=== PATIENT | male | born 1955 | race Caucasian/White ===

== ENCOUNTER 2022-04-07 17:43 | Inpatient (IN) | payer MEDICARE, OTHER ==
[~2022-04-07] VITALS: Ht 170.2 cm; Wt 63.5 kg
[2022-04-07 19:07] LABS: BILIRUBIN,URINE NEGATIVE (NEGATIVE); COLOR,URINE YELLOW (YELLOW); LEUKOCYTE ESTERASE ,URINE NEGATIVE (NEGATIVE); NITRITE, URINE NEGATIVE (NEGATIVE); PROTEIN,URINE NEGATIVE (NEGATIVE); UGLUCOSE NEGATIVE (NEGATIVE); UROBILINOGEN,URINE 0.2 EU/dL (0.2)
[2022-04-07 19:17] LABS: BACTERIA,URINE None seen /HPF (None Seen); RBC,URINE 0-2 /HPF (0-2); SQUAMOUS EPITHELIAL CELL,UR 0-2 /HPF (None Seen); WBC,URINE 0-2 /HPF (0-3)
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
[2022-04-07 19:41] LABS: ALANINE AMINOTRANSFERASE 10 U/L (12-78); ALBUMIN 3.4 g/dL (3.4-5.0); ALCOHOL, BLOOD < 3 mg/dL (0-0); ALKALINE PHOSPHATASE 113 U/L (46-116); ASPARTATE AMINOTRANSFERASE 7 U/L (15-37); BILIRUBIN,DIRECT 0.1 mg/dL (0.0-0.2); BILIRUBIN,TOTAL 0.4 mg/dL (0.2-1.0); CALCIUM, SERUM 9.1 mg/dL (8.5-10.1); CARBON DIOXIDE 20 mmol/L (21-32); CHLORIDE 104 mmol/L (98-107); CREATININE 0.8 mg/dL (0.6-1.3); GLUCOSE 109 mg/dL (74-106); SODIUM SERUM 140 mmol/L (136-145); TOTAL PROTEIN, SERUM 6.7 g/dL (6.4-8.2); UREA NITROGEN, BLOOD 21 mg/dL (7-18)
[2022-04-07 19:47] LABS: ACETAMINOPHEN < 0 ug/ml (10-30)
--- NOTE | 2022-04-07 19:48 | NUR ---
COVID ANTIGEN SWAB COLLECTED AND SENT TO LAB
[2022-04-07 20:36] LABS: BASOPHILS # (AUTO) 0.1 K/uL (0.0-0.2); BASOPHILS % (AUTO) 0.6 % (0.0-2.0); EOSINOPHILS % (AUTO) 1.3 % (0.0-6.0); HEMATOCRIT 36 % (39-51); HEMOGLOBIN 11.4 g/dL (13.5-17.5); LYMPHOCYTES # (AUTO) 6.6 K/uL (0.8-4.8); LYMPHOCYTES % (AUTO) 45.6 % (20.0-44.0); MEAN CORPUSCULAR HGB CONC 32 g/dl (31.0-36.0); MEAN CORPUSCULAR VOLUME 84 fL (80-96); MONOCYTES # (AUTO) 0.6 K/uL (0.1-1.30); MONOCYTES % (AUTO) 4.3 % (2.0-12.0); NEUTROPHILS % (AUTO) 48.2 % (43.0-81.0); PLATELET COUNT (AUTO) 373 K/uL (150-450); RED BLOOD CELL COUNT(AUTO) 4.32 MIL/uL (4.5-6.0); WHITE BLOOD COUNT (AUTO) 14.6 K/uL (4.3-11.0)
--- NOTE | 2022-04-07 20:50 | NUR ---
PT IS GOING TO ROOM 217 GPS
--- NOTE | 2022-04-07 20:51 | NUR ---
REPORT GIVEN TO MARCOS PRO FOR ELVIRA
--- NOTE | 2022-04-07 21:22 | NUR ---
PT TAKEN TO GPS 217 VIA HOSPITAL PROTOCOL. VSS. ALL BELONGINGS WITH PT.
[2022-04-07 21:30] VITALS: BP 129/85
[2022-04-07] MEDS ORDERED: OMEP40CA21 PO (21:42)
[2022-04-07] MEDS ORDERED: LITH300T3 PO (21:43)
[2022-04-07] MEDS ORDERED: HALO100V5 IM (21:46)
[2022-04-07] MEDS ORDERED: MAGNESIUM HYDROXIDE 30 ML UDC PO PRN (22:00)
[2022-04-07] MEDS ORDERED: ACETAMINOPHEN 325 MG TABLET PO PRN (22:00)
[2022-04-07] MEDS ORDERED: TEMAZEPAM 7.5 MG CAPSULE PO PRN (22:00)
[2022-04-07 22:01] VITALS: BP 129/85
[2022-04-07] MEDS ORDERED: BLOOD SUGAR DIAGNOSTIC 1 EACH STRIP IN ONE (22:30)
[2022-04-07] MEDS ORDERED: hydrOXYzine HCL SYRUP 10 MG/5 ML UDC PO PRN (22:30)
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
--- NOTE | 2022-04-08 01:00 | NUR ---
GPS RN NOTE, PATIENT NEEDS A MEDICATION RECONCILIATION. PAGED [facility] AND INFORMED ANNE HURLEY DNP OF MY FINDINGS. ANNE HURLEY DNP SAID SHE WILL DO THE MEDICATION RECONCILIATION ANA. WILL CONTINUE TO MONITOR THIS PATIENT WITH THE HELP OF STAFF.
--- NOTE | 2022-04-08 05:33 | NUR ---
GPS RN NOTE PATIENT HAS BEEN SLEEPING COMFORTABLY IN HIS BED SINCE 2214.
--- NOTE | 2022-04-08 06:00 | NUR ---
GPS RN NOTE, PATIENT NEEDS A MEDICATION RECONCILIATION. PAGED [facility] AND INFORMED ANNE HURLEY DNP OF MY FINDINGS. ANNE HURLEY DNP SAID SHE WILL DO THE MEDICATION RECONCILIATION ANA. WILL CONTINUE TO MONITOR THIS PATIENT WITH THE HELP OF STAFF.
--- NOTE | 2022-04-08 06:50 | NUR ---
PATIENT IS STILL ASLEEP COMFORTABLY.
[2022-04-08] MEDS: NICOTINE PATCH (21MG) 21 MG PATCH.TD24 TD SCH ×2 (08:21→08:27)
--- NOTE | 2022-04-08 11:00 | NUR ---
IV of gauge #22 started on right hand with good blood return and pt. tolerated well.
[2022-04-08] MEDS ORDERED: IV LR 1000 ML 1,000 ML IV SCH (11:30)
--- NOTE | 2022-04-08 11:40 | NUR ---
iv started lt wrist with #22 angio.bun elevated.
[2022-04-08] MEDS: LITHIUM CARBONATE (300 MG CAP) 300 MG CAPSULE PO SCH (12:24)
[2022-04-08] MEDS: PANTOPRAZOLE 40 MG TABLET.DR PO SCH (12:24)
[2022-04-08 16:00] VITALS: BP 128/73
--- NOTE | 2022-04-08 18:00 | NUR ---
med compliant,calling out for rn nichelle.very needy.
[2022-04-08] MEDS: OLANZAPINE 5 MG TABLET PO SCH (18:31)
--- NOTE | 2022-04-08 19:50 | NUR ---
GPS RN OPENING NOTE: RECEIVED PATIENT RESTING IN BED AWAKE, A & O X 1, DISORGANIZED, LABILE, RESTLESS, ANXIOUS, DELUSIONAL, PARANOID THOUGHTS. REDIRECTABLE AT THIS TIME. LR IVF RUNNING AT 100 ML/HR TO RIGHT POSTERIOR HAND, INTACT AND DRY. PATIENT TOLERATING IV FLUIDS WELL WITH GOOD URINE OUTPUT. NO S/S OF INFECTION/INFILTRATION NOTED. NO C/O PAIN VERBALIZED. NO ACUTE DISTRESS NOTED. PATIENT DENIES SI/HI AT THIS TIME. BED IN LOW LOCKED POSITION. BED ALARM ON. WILL CONTINUE TO MONITOR Q 15 MIN FOR SAFETY AND BEHAVIOR.
[2022-04-08 20:13] VITALS: BP 126/75
[2022-04-08 20:19] VITALS: BP 126/75
--- NOTE | 2022-04-08 21:32 | NUR ---
GPS RN NOTE: INSOMNIA PATIENT VERBALIZED BEING UNABLE TO SLEEP AND REQUESTED TO TAKE SLEEPING MEDICINE. PER PATIENT REQUEST, PRN RESTORIL 7.5 MG 1 CAP PO ADMINISTERED. WILL CONTINUE TO MONITOR.
--- NOTE | 2022-04-08 21:45 | NUR ---
GPS RN NOTE PATIENT'S IVF LACTATE RINGER FINISHED AT THIS TIME, PATIENT TOLERATED IV FLUIDS WELL, YELLOW/CLEAR URINE OUTPUT NOTED. IV CATHETER TO RIGHT HAND INTACT AND DRY. NO S/S OF INFECTION NOTED. PATIENT IS SLEEPING AT THIS TIME. WILL CONTINUE TO MONITOR FOR ANY CHANGE OF CONDITION.
[2022-04-09] MEDS: PANTOPRAZOLE 40 MG TABLET.DR PO SCH (06:57)
[2022-04-09 07:20] LABS: BASOPHILS # (AUTO) 0.1 K/uL (0.0-0.2); BASOPHILS % (AUTO) 0.6 % (0.0-2.0); EOSINOPHILS % (AUTO) 1.9 % (0.0-6.0); HEMATOCRIT 34 % (39-51); HEMOGLOBIN 10.9 g/dL (13.5-17.5); LYMPHOCYTES # (AUTO) 4.8 K/uL (0.8-4.8); LYMPHOCYTES % (AUTO) 41.2 % (20.0-44.0); MEAN CORPUSCULAR HGB CONC 32 g/dl (31.0-36.0); MEAN CORPUSCULAR VOLUME 84 fL (80-96); MONOCYTES # (AUTO) 0.7 K/uL (0.1-1.30); MONOCYTES % (AUTO) 5.8 % (2.0-12.0); NEUTROPHILS # (AUTO) 5.9 K/uL (1.8-8.9); NEUTROPHILS % (AUTO) 50.5 % (43.0-81.0); PLATELET COUNT (AUTO) 345 K/uL (150-450); WHITE BLOOD COUNT (AUTO) 11.6 K/uL (4.3-11.0)
[2022-04-09 07:22] LABS: CALCIUM, SERUM 9.5 mg/dL (8.5-10.1); CREATININE 0.9 mg/dL (0.6-1.3)
[2022-04-09] MEDS ORDERED: OMEPRAZOLE 20 MG CAPSULE.DR PO SCH (07:30)
[2022-04-09 08:00] VITALS: BP 118/62
[2022-04-09] MEDS: NICOTINE PATCH (21MG) 21 MG PATCH.TD24 TD SCH (08:53)
[2022-04-09] MEDS: OLANZAPINE 5 MG TABLET PO SCH ×2 (08:53→16:56)
[2022-04-09] MEDS: LITHIUM CARBONATE (300 MG CAP) 300 MG CAPSULE PO SCH (08:53)
--- NOTE | 2022-04-09 09:00 | NUR ---
GPS/RN RECEIVED PT RESTING IN THE BED, DISORGANIZED, DISORIENTED. DENIES SI/HI AT THIS TIME. DENIES PAIN AT THIS TIME. NO S/S OF ACUTE DISTRESS. DAILY MEDS COMPLIANT. AMBULATORY. ALL NEEDS ATTENDED AND ANTICIPATED. WILL CONTINUE TO MONITOR Q15 FOR MOOD, SAFETY AND BEHAVIOR. H/L REMOVED NM PT REQUEST.
[2022-04-09 16:00] VITALS: BP 123/77
[2022-04-09 19:53] VITALS: BP 122/73
--- NOTE | 2022-04-10 01:34 | NUR ---
RN Note Pt refused all the PRN meds.
[2022-04-10] MEDS: PANTOPRAZOLE 40 MG TABLET.DR PO SCH (06:16)
[2022-04-10 08:00] VITALS: BP 135/75
[2022-04-10] MEDS: LITHIUM CARBONATE (300 MG CAP) 300 MG CAPSULE PO SCH (09:10)
[2022-04-10] MEDS: OLANZAPINE 5 MG TABLET PO SCH ×2 (09:11→17:19)
[2022-04-10] MEDS: NICOTINE PATCH (21MG) 21 MG PATCH.TD24 TD SCH (09:11)
--- NOTE | 2022-04-10 10:57 | NUR ---
MERNA Initial Discharge Plan: Patient currently resides at home located at [address] [place] [address]. Pt has a caregiver at home Philomena ([phone]). Pt would want to return back home upon discharge. MERNA will work with the family, MD, and pt to help coordinate appropriate discharge.
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
--- NOTE | 2022-04-10 10:58 | NUR ---
Treatment Plan: Pt refused to sign treatment plan and was paranoid.
--- NOTE | 2022-04-10 11:01 | NUR ---
Social Work Note/Substance Abuse Intervention: Patient was provided with a brief substance abuse intervention and referred to [facility] ([phone]), [facility] ([phone]), and [facility] ([phone]) for smoking.
--- NOTE | 2022-04-10 15:50 | NUR ---
Individual Counseling: SW met with pt. to complete individual counseling. The pt. is labile with paranoid ideation. Pt. is somewhat disorganized and confused. SW will meet with pt. another time for therapeutic millieu.
[2022-04-10 16:00] VITALS: BP 130/71
--- NOTE | 2022-04-10 16:04 | NUR ---
MERNA Family Contact: MERNA spoke with patient's brother Juliette ([phone]) to gather collateral and discuss treatment and discharge plan. Brother stated pt has a caregiver 11/06. However, he stated that they are unable to take care of him properly. He stated nurse would come every 3 weeks to give pt Haldol shot. He stated that he would want to check in with this insurance underwriter end of this week to possibly discuss nursing facility options for pt.
--- NOTE | 2022-04-10 19:30 | NUR ---
GPS RN NOTES RECEIVED PATIENT IN HIS ROOM. ALERT AND ORIENTED X2, ABLE TO MAKE NEEDS KNOWN. NO S/SX OF ACUTE DISTRESS NOTED. PATIENT REMAINS DELUSIONAL, LABILE, NEEDY, VISIBLE IN THE UNIT, COOPERATIVE. VERBALIZATION OF FEELINGS ENCOURAGED. SAFETY PRECAUTIONS IN PLACE. WILL CONTINUE TO MONITOR Q15MIN ROUNDS FOR SAFETY AND BEHAVIOR.
[2022-04-10 19:42] VITALS: BP 109/70
[2022-04-11 08:00] VITALS: BP 140/84
[2022-04-11] MEDS: PANTOPRAZOLE 40 MG TABLET.DR PO SCH (08:28)
[2022-04-11] MEDS: OLANZAPINE 5 MG TABLET PO SCH ×2 (08:28→16:13)
[2022-04-11] MEDS: LITHIUM CARBONATE (300 MG CAP) 300 MG CAPSULE PO SCH (08:29)
[2022-04-11] MEDS: NICOTINE PATCH (21MG) 21 MG PATCH.TD24 TD SCH (08:33)
[2022-04-11 16:00] VITALS: BP 112/69
[2022-04-11 20:26] VITALS: BP 106/60
[2022-04-11 22:48] VITALS: BP 106/60
[2022-04-12 08:00] VITALS: BP 122/74
[2022-04-12] MEDS: NICOTINE PATCH (21MG) 21 MG PATCH.TD24 TD SCH ×2 (08:31→09:00)
[2022-04-12] MEDS: PANTOPRAZOLE 40 MG TABLET.DR PO SCH (08:31)
[2022-04-12] MEDS: LITHIUM CARBONATE (300 MG CAP) 300 MG CAPSULE PO SCH ×2 (08:31→17:12)
[2022-04-12] MEDS: OLANZAPINE 5 MG TABLET PO SCH ×2 (08:31→17:12)
--- NOTE | 2022-04-12 08:37 | NUR ---
RN-NOTES RECEIVED T.O DISCHARGE ORDER FROM DR. FERNANDEZ NOTED AND CARRIED OUT.
--- NOTE | 2022-04-12 13:24 | NUR ---
Court Notification: SW attempted to contact pt's brother Jim ([phone]) to notify of pt's 9400 hearing.
[2022-04-12 16:00] VITALS: BP 126/71
--- NOTE | 2022-04-12 18:22 | NUR ---
RN-NOTES PATIENT LYING IN BED AWAKE,ALERT X1,GUARDED, AMBULATORY STEADY GAIT. NOTED PATIENT WITH DELUSIONAL STATED" I WAS SEND HERE IN [facility] AND TO SEE THE CAPTAIN ". NEEDS FREQUENT REDIRECTIONS AND INSTRUCTIONS.COMPLIANT WITH MEDICATIONS. ALL NEEDS ATTENDED AND ANTICIPATED. WILL CONT. MONITORING FOR SAFETY AND BEHAVIOR. WILL ENDORSE TO INCOMING SHIFT FOR CONTINUITY OF CARE.
[2022-04-12 20:00] VITALS: BP 113/71
[2022-04-13 08:00] VITALS: BP 128/77
[2022-04-13] MEDS: LITHIUM CARBONATE (300 MG CAP) 300 MG CAPSULE PO SCH ×2 (08:03→16:26)
[2022-04-13] MEDS: OLANZAPINE 5 MG TABLET PO SCH ×2 (08:03→16:26)
[2022-04-13] MEDS: PANTOPRAZOLE 40 MG TABLET.DR PO SCH (08:03)
[2022-04-13] MEDS: NICOTINE PATCH (21MG) 21 MG PATCH.TD24 TD SCH (08:04)
--- NOTE | 2022-04-13 08:25 | NUR ---
SNF Referral: SW sent clinicals to [facility] ([phone]) for placement option. SW sent H & P, progress notes, and medication list.
[2022-04-13 16:00] VITALS: BP 128/76
--- NOTE | 2022-04-13 18:19 | NUR ---
RN-NOTES PATIENT LYING IN BED AWAKE,ALERT X1 GUARDED ,NOTED WITH DELUSIONAL, EASILY ANGRY AND IRRITABLE BEHAVIOR.NO ACUTE DISTRESS NOTED. COMPLIANT WITH MEDICATIONS.NEEDS MINIMAL ASSIST WITH ADL'S.AMBULATORY STEADY GAIT.ABLE TO MAKE NEEDS KNOWN TO THE STAFF. ALL NEEDS ATTENDED AND ANTICIPATED. WILL CONT. MONITORING FOR SAFETY AND BEHAVIOR.WILL ENDORSE TO INCOMING NURSE FOR CONTINUITY OF CARE.
[2022-04-13 19:57] VITALS: BP 134/80
[2022-04-13 20:00] VITALS: BP 134/80
--- NOTE | 2022-04-13 20:50 | NUR ---
GPS RN NOTE: PAIN PATIENT C/O GENERALIZED BODY PAIN, UNABLE TO SCALE DUE TO CONFUSION. PATIENT REQUESTED TO TAKE PAIN MEDICINE, PRN TYLENOL 650 MG PO ADMINISTERED.
[2022-04-14] MEDS: MAG HYDROX/AL HYDROX/SIMETH 30 ML UDC PO PRN ×2 (00:09→04:29)
--- NOTE | 2022-04-14 00:12 | NUR ---
GPS RN NOTE: HEARTBURN PATIENT C/O HEARTBURN AND WANTED TO TAKE MEDICINE. PRN MAALOX 30 ML PO ADMINISTERED. WILL CONTINUE TO MONITOR.
--- NOTE | 2022-04-14 04:32 | NUR ---
GPS RN NOTE: STOMACH UPSET PATIENT C/O STOMACH UPSET AND WANTED TO TAKE MEDICINE. PER PATIENT REQUEST, PRN MAALOX 30 ML PO ADMINISTERED. WILL CONTINUE TO MONITOR.
[2022-04-14] MEDS: PANTOPRAZOLE 40 MG TABLET.DR PO SCH (06:33)
[2022-04-14 08:00] VITALS: BP 126/73
[2022-04-14] MEDS: LITHIUM CARBONATE (300 MG CAP) 300 MG CAPSULE PO SCH (08:49)
[2022-04-14] MEDS: NICOTINE PATCH (21MG) 21 MG PATCH.TD24 TD SCH (08:54)
--- NOTE | 2022-04-14 08:55 | NUR ---
RN-NOTES PATIENT REFUSED ZYPREXA 5MG P.O ,STATED" I DON'T TAKE ZYPREXA", AND TROW THE MEDICATION ON THE FLOOR. BLANCHE KNIGHT IN THE UNIT AND MADE AWARE.
--- NOTE | 2022-04-14 09:31 | NUR ---
Court Notification: SW attempted to contact pt's brother Karissa ([phone]) not notify of [phone]. SW left voicemail.
--- NOTE | 2022-04-14 11:58 | NUR ---
SNF Contact: SW spoke with [facility] ([phone]) who stated pt is accepted.
--- NOTE | 2022-04-14 12:18 | NUR ---
Court Hearing: Patient's court hearing for 8540 was today and it was upheld for GD and danger to others.
--- NOTE | 2022-04-14 13:01 | NUR ---
MERNA Family Contact: MERNA contacted patient's brother Juliette ([phone]) and notified that he is accepted at [facility]. He was agreeable of this and wants pt to go to a nursing facility.
--- NOTE | 2022-04-14 14:22 | NUR ---
MERNA Family Contact: MERNA received a call from pt's brother Ashely ([phone]) who stated that pt's Haldol Long Acting injection is due 04/15/2022 and that he receives it every three weeks. MERNA will Notify Dr. Lockhart.
--- NOTE | 2022-04-14 14:23 | NUR ---
MERNA Note: MERNA contacted Dr. Lockhart in regards to pt's brother concerned about his Haldol long acting injection that it is due 04/15/2022. MERNA contacted pt's doctor office ([phone]) to conform dosage. Pt receives long acting injection Haldol every three weeks. MERNA confirmed (Psychiatrist) Dr. Looney office that pt receives Haldol 100mg long acting injection. MERNA notified MARCOS Gamino and MARCOS Griffin.
--- NOTE | 2022-04-14 14:23 | NUR ---
RN-NOTES T.O ORDER FROM DNP IKNAKUL OF HALOPERIDOL DECANOATE 100MG IM ONCE ON 04-14-22 . NOTED AND CARRIED OUT.
--- NOTE | 2022-04-14 14:26 | NUR ---
MERNA Family Contact: MERNA contacted pt's brother Ashely ([phone]) and notified that Dr. Lockhart will place the order for the Haldol long acting injection.
[2022-04-14 16:00] VITALS: BP 125/67
--- NOTE | 2022-04-14 18:52 | NUR ---
RN-NOTES PATIENT LYING IN BED AWAKE,ALERT X1 GUARDED ,NOTED WITH DELUSIONAL, EASILY ANGRY AND IRRITABLE BEHAVIOR.NO ACUTE DISTRESS NOTED. SELECTIVE WITH MEDICATIONS.NEEDS MINIMAL ASSIST WITH ADL'S.AMBULATORY STEADY GAIT.ABLE TO MAKE NEEDS KNOWN TO THE STAFF. ALL NEEDS ATTENDED AND ANTICIPATED. WILL CONT. MONITORING FOR SAFETY AND BEHAVIOR.WILL ENDORSE TO INCOMING NURSE FOR CONTINUITY OF CARE.
[2022-04-14 19:39] VITALS: BP 109/74
[2022-04-14 20:00] VITALS: BP 109/74
[2022-04-15] MEDS: MAG HYDROX/AL HYDROX/SIMETH 30 ML UDC PO PRN (02:03)
[2022-04-15] MEDS: PANTOPRAZOLE 40 MG TABLET.DR PO SCH (06:52)
[2022-04-15 08:00] VITALS: BP 113/64
[2022-04-15] MEDS: NICOTINE PATCH (21MG) 21 MG PATCH.TD24 TD SCH (08:21)
[2022-04-15] MEDS: LITHIUM CARBONATE (300 MG CAP) 300 MG CAPSULE PO SCH (08:21)
[2022-04-15] MEDS ORDERED: HALOPERIDOL DECANOATE IM 100 MG/ML AMPUL IM ONE ×2 (09:00→11:00)
--- NOTE | 2022-04-15 09:45 | NUR ---
RN Notes: Received pt. in the hallway, responsive to staffs, no distress and no agitation noted. Ate 100% for breakfast and compliant on po med and refused for Nicotine patch. Pt. is disorganized, needy and delusional and wanted to talk to [facility] commander and doesn't know who he is and what's the umber to call. Encouraged to verbalize feelings and motivated to take shower. Needs attended and will continue to monitor for safety.
[2022-04-15 16:00] VITALS: BP 101/60
[2022-04-15 20:00] VITALS: BP 95/60
[2022-04-15 20:21] VITALS: BP 95/60
[2022-04-16] MEDS: PANTOPRAZOLE 40 MG TABLET.DR PO SCH (06:55)
--- NOTE | 2022-04-16 06:59 | NUR ---
GPS RN NOTE PANTOPRAZOLE GIVEN TO THE PATIENT THIS MORNING, OMNICELL SHOWS THERE SHOULD BE 8 PANTOPRAZOLE REMAINING AFTER TAKING OUT TODAY'S DOSE BUT NECK BAND SETTER NOTED THAT THERE WAS ONLY 6 PANTOPRAZOLE TABS REMAINING IN THE OMNICELL.
--- NOTE | 2022-04-16 07:30 | NUR ---
RN-NOTE PATIENT LYING IN BED AWAKE,ALERT X1 GUARDED ,NOTED WITH DELUSIONAL, EASILY ANGRY AND IRRITABLE BEHAVIOR.NO ACUTE DISTRESS NOTED. SELECTIVE WITH MEDICATIONS.NEEDS MINIMAL ASSIST WITH ADL'S.AMBULATORY STEADY GAIT.ABLE TO MAKE NEEDS KNOWN TO THE STAFF. ALL NEEDS ATTENDED AND ANTICIPATED. WILL CONT. MONITORING FOR SAFETY AND BEHAVIOR.
--- NOTE | 2022-04-16 07:30 | NUR ---
Received pt. in the hallway, responsive to staff, no distress and no agitation noted. Ate 100% for breakfast and compliant on po med and refused for Nicotine patch. Encouraged to verbalize feelings and motivated to take shower. Needs attended and will continue to monitor for safety.
[2022-04-16 08:00] VITALS: BP_SYST 112; BP_SYST 150; BP_DIAS 64; BP_DIAS 72
[2022-04-16] MEDS: NICOTINE PATCH (21MG) 21 MG PATCH.TD24 TD SCH (08:31)
[2022-04-16] MEDS: LITHIUM CARBONATE (300 MG CAP) 300 MG CAPSULE PO SCH (08:31)
[2022-04-16 16:00] VITALS: BP 105/60
[2022-04-16 20:23] VITALS: BP 104/62
[2022-04-17] MEDS: PANTOPRAZOLE 40 MG TABLET.DR PO SCH ×2 (06:37→08:35)
[2022-04-17 08:00] VITALS: BP 113/69
[2022-04-17] MEDS: LITHIUM CARBONATE (300 MG CAP) 300 MG CAPSULE PO SCH (08:34)
[2022-04-17] MEDS: NICOTINE PATCH (21MG) 21 MG PATCH.TD24 TD SCH (08:36)
[2022-04-17 16:00] VITALS: BP 113/70
--- NOTE | 2022-04-17 17:44 | NUR ---
RN-NOTES PATIENT LYING IN BED AWAKE,ALERT X1 GUARDED ,NOTED WITH EASILY ANGRY AND IRRITABLE BEHAVIOR.NO ACUTE DISTRESS NOTED. COMPLIANT WITH MEDICATIONS.NEEDS MINIMAL ASSIST WITH ADL'S.AMBULATORY STEADY GAIT.ABLE TO MAKE NEEDS KNOWN TO THE STAFF. ALL NEEDS ATTENDED AND ANTICIPATED. WILL CONT. MONITORING FOR SAFETY AND BEHAVIOR.WILL ENDORSE TO INCOMING NURSE FOR CONTINUITY OF CARE.
--- NOTE | 2022-04-17 19:30 | NUR ---
GPS RN NOTES RECEIVED PATIENT LYING IN BED AWAKE. A/O X1-2 GUARDED. NOT IN APPARENT DISTRESS. DENIES PAIN AT THIS TIME. NOTED WITH EASILY ANGRY AND IRRITABLE BEHAVIOR. AMBULATORY WITH STEADY GAIT. ABLE TO MAKE NEEDS KNOWN TO THE STAFF. WILL CONT. MONITORING FOR SAFETY AND BEHAVIOR.
[2022-04-17 20:00] VITALS: BP 114/69
--- NOTE | 2022-04-18 06:05 | NUR ---
GPS RN NOTES PATIENT LYING IN BED QUIETLY, AWAKE. A/O X1-2 GUARDED. NO C/O PAIN AT THIS TIME. NO S/S OF DISTRESS NOTED. BREATHING EVEN AND NON-LABORED ON ROOM AIR. DENIES SI/HI AT THIS TIME. NOTED WITH EASILY ANGRY AND IRRITABLE BEHAVIOR. ALL NEEDS ANTICIPATED. AMBULATORY WITH STEADY GAIT. SAFETY PRECAUTIONS IN PLACE: BED LOW AND LOCKED, SIDE RAILS UP X2. WILL CONT. MONITORING FOR SAFETY AND BEHAVIOR. WILL ENDORSE TO AM NURSE FOR CONTINUITY OF CARE.
[2022-04-18 06:52] VITALS: BP 114/69
[2022-04-18 08:00] VITALS: BP 127/71
[2022-04-18] MEDS: NICOTINE PATCH (21MG) 21 MG PATCH.TD24 TD SCH ×2 (08:37→08:59)
[2022-04-18] MEDS: LITHIUM CARBONATE (300 MG CAP) 300 MG CAPSULE PO SCH (08:37)
[2022-04-18] MEDS: PANTOPRAZOLE 40 MG TABLET.DR PO SCH (08:37)
--- NOTE | 2022-04-18 09:26 | NUR ---
MERNA Family Contact: SW contacted pt's brother Ashely ([phone]) notified pt will be discharging on 04/[address] [facility] and left a detailed voicemail.
--- NOTE | 2022-04-18 14:20 | NUR ---
anxious about going home tomorrow.
--- NOTE | 2022-04-18 14:50 | NUR ---
COVID TEST DONE IN PREPARATION OF DISCHARGE TOMORROW.
[2022-04-18 16:00] VITALS: BP 113/68
[2022-04-18 20:00] VITALS: BP 114/60
--- NOTE | 2022-04-18 20:30 | NUR ---
GPS RN NOTES: PATIENT AIRSET MOLDER CAME AND WAS VERY UPSET WHEN WE TOLD HER PATIENT DID NOT HAVE A WALLET WITH HIM ON ADMISSION. AIRSET MOLDER STARTED CURSING AT STAFF, YELLING THAT PATIENT WALLET HAS BEEN STOLEN BY STAFF. GPS ADMITTING RECORD DID NOT SHOW PATIENT CAME WITH A WALLET TO THE UNIT. SUPERVISORS SAFE HAS ONLY PATIENT CELL PHONE. ASSISTANT CURATOR CAME AND TRIED TALKING TO CAREGIVER EXPLAINING THAT ER IS CHECKING TO SEE IF PATIENT HAD A WALLET WITH HIM BUT SHE WOULDN'T LISTEN. ER HAS BEEN CONTACTED TO CHECK IF PATIENT WALLET WAS ACCIDENTALLY LEFT BEHIND DURING TRANSFER TO GPS. AWAITING ER RESPONSE. AIRSET MOLDER FINALLY LEFT WITH PATIENT RADIO, BELT, EXTENSION CORDS, VOLUNTEER FIRE FIGHTER, AND CIGARETTES.
--- NOTE | 2022-04-19 00:22 | NUR ---
GPS RN NOTES: ER PATIENT BELONGINGS SHEET SHOWS PATIENT DID NOT HAVE ANY WALLET WITH HIM ON ADMISSION.
--- NOTE | 2022-04-19 07:10 | NUR ---
GPS RN CLOSING NOTES: PATIENT AWAKE, A/O X2. PATIENT SLEPT 8HRS THIS SHIFT. NO S/S OF DISTRESS. RESPIRATION EVEN AND UNLABORED WITH EQUAL RISE AND FALL OF THE CHEST, ON ROOM AIR. ALL PATIENT CARE NEEDS HAVE BEEN MET ANTICIPATED. WILL CONTINUE TO MONITOR Q15 FOR SAFETY, MOOD, AND BEHAVIOR AND ENDORSE TO AM SHIFT.
[2022-04-19 08:00] VITALS: BP 119/68
[2022-04-19] MEDS: LITHIUM CARBONATE (300 MG CAP) 300 MG CAPSULE PO SCH (08:12)
[2022-04-19] MEDS: NICOTINE PATCH (21MG) 21 MG PATCH.TD24 TD SCH (08:12)
--- NOTE | 2022-04-19 08:19 | NUR ---
SW Discharge Note: Patient will be discharged to intermediate facility [facility] [address], [place] [address]; ). Please arrange ambulance at 1PM. Authorizer spoke with Bob Agricultural Extension Agent at [facility]; ([phone]), who stated patient will be accepted today. Patients brother Jim ([phone]) is aware and agreeable. Patient is alert and oriented x2 and is unable to plan for self-care. Patient denies any suicidal or homicidal ideations. Patient is aware and agreeable with discharge plans. Patient will continue to follow-up with (Psychiatrist) Dr. Lujan [address], [place] [address]; ([phone]) and ([employer]) Dr. Grant [address], [place] [address]; ([phone]). Patient presents with euthymic mood and congruent affect.
--- NOTE | 2022-04-19 09:16 | NUR ---
RN-CO: Patient is alert oriented x 2-3, able to make needs known. Denied pain and discomforts and visible in the unit. He was seen and examined by Dr Oliveira with orders to discontinue hold and discharge patient to [facility]. Patient denied suicidal and homicidal ideation. He denied command hallucination. His been calm and cooperative to care. Medical doctor Trev medically cleared him for discharge. All belongings and valuables will be given back to the patient.
--- NOTE | 2022-04-19 11:25 | NUR ---
RN-CO: Report was given to Baltazar RODRÍGUEZ.
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
== END 2022-04-19 14:27 | DRG 885 ==
LOC: ER 17:54 → GPS 21:04
PROVIDERS: ADMIT Nurse Practitioner Psychiatric/Mental Health; ATTEND Nurse Practitioner Acute Care
DX: F25.0 Schizoaffective disorder, bipolar type (principal); G81.94 Hemiplegia, unspecified affecting left nondominant side; K21.9 Gastro-esophageal reflux disease without esophagitis; Z20.822 Contact with and (suspected) exposure to COVID-19; F31.9 Bipolar disorder, unspecified; D72.829 Elevated white blood cell count, unspecified; G31.84 Mild cognitive impairment of uncertain or unknown etiology
CPT/HCPCS: 36415; 80048-TC; 80061-TC; 80076-TC; 81001; 82962-TC; 85025-TC; 87081-TC; 97112-TC; 97116-TC; 97530-TC; C9803; G0480; J1631; J7120